=== PATIENT | female | born 1975 | race Caucasian/White ===

== ENCOUNTER 2016-04-20 11:03 | Emergency (ER) | payer BC ==
[2016-04-20] MEDS ORDERED: ONDANSETRON 4 MG/2 ML VIAL ONE (11:27)
[2016-04-20 11:36] VITALS: TEMP 97.9; BMI 27.3
[2016-04-20] MEDS ORDERED: ONDANSETRON 4 MG/2 ML VIAL IVPUSH ONE (11:53)
[2016-04-20] MEDS ORDERED: ACETAMINOPHEN 1000 MG/100 ML VIAL (NON FORMULARY) IVPB ONE (11:54)
[2016-04-20] MEDS ORDERED: SODIUM CHLORIDE 1,000 ML IV SCH (12:00)
--- NOTE | 2016-04-20 12:00 | PDOC ---
History of Present Illness - General Chief Complaint: Nausea/Vomiting Stated Complaint: NAUSEA & VOMITING Time Seen by Provider: 04/20/16 11:41 - History of Present Illness Initial Comments: 04/20/16 11:55 40-year-old female with past medical history of psoriasis, for which she is on otezla She states that she has been on this for a while, and it is not an immunosuppressive Patient states that she did have the flu shot this year Patient states that she was driving to work when she suddenly got nauseated Then she started vomiting multiple times, the vomitus was not bloody Then she got home, had multiple episodes of watery diarrhea, without blood, and multiple episodes of vomiting again without blood She is complaining of intermittent abdominal cramping She complains of associated chills, but no fever She did have her flu shot this year She states that after having "too numerous to count" episodes of vomiting and diarrhea, she had near syncope, and some to her knees, but was able to get back up She is on oral contraceptives that she states she hasn't had a period for a long time since she's been on the oral contraceptives She denies any dysuria urgency or frequency She denies any vaginal discharge She states that her friend was sick with a gastrointestinal illness recently She denies any other complaints at this time, and the remainder of the review of systems is negative Past History - Past Medical History Allergies/Adverse Reactions: Allergies Allergy/AdvReac Type Severity Reaction Status Date / Time No Known Allergies Allergy Verified 04/20/16 11:15 Home Medications: Ambulatory Orders Apremilast [Otezla] 30 mg PO 04/20/16 Norethindrone AC-Eth Estradiol [Junel] 1 each PO 04/20/16 Ondansetron [Zofran Odt -] 4 mg SL TID PRN #14 od.tablet 04/20/16 Other medical history: PSORIASIS - Psycho/Social/Smoking Cessation Hx Anxiety: No Suicidal Ideation: No Smoking History: Never smoked Hx Alcohol Use: No Drug/Substance Use Hx: No Substance Use Type: None Review of Systems - Review of Systems Able to Perform ROS?: Yes Comments:: 04/20/16 11:57 12 point review of systems is as per history of present illness and otherwise negative *Physical Exam - Vital Signs Last Vital Signs Temp Pulse Resp BP Pulse Ox 97.9 F 73 16 116/66 99 04/20/16 11:13 04/20/16 11:13 04/20/16 11:13 04/20/16 11:13 04/20/16 11:13 - Physical Exam Comments: 04/20/16 11:59 Physical exam Last Vital Signs Temp Pulse Resp BP Pulse Ox 97.9 F 73 16 116/66 99 04/20/16 11:13 04/20/16 11:13 04/20/16 11:13 04/20/16 11:13 04/20/16 11:13 GENERAL: The patient is awake, alert, and fully oriented, and in no apparent distress. HEAD: Normal with no signs of trauma. EYES: Sclera anicteric, conjunctiva normal ENT: Mucous membranes dry NECK: Normal range of motion, supple LUNGS: Breath sounds equal, clear to auscultation bilaterally. No wheezes, and no crackles. HEART: Regular rate and rhythm, normal S1 and S2 without murmur, rub or gallop. ABDOMEN: Soft, nontender, normoactive bowel sounds. No guarding, no rebound. No masses appreciated. Abdomen is completely soft and nontender EXTREMITIES: Normal range of motion, no edema. No clubbing or cyanosis. No cords, erythema, or tenderness. NEUROLOGICAL: Cranial nerves II through XII grossly intact. Normal speech, normal gait. PSYCH: Normal mood, normal affect. SKIN: Warm, Dry, normal turgor, no rashes or lesions noted. ED Treatment Course - LABORATORY CBC & Chemistry Diagram: 04/20/16 12:40 04/20/16 12:40 Medical Decision Making - Medical Decision Making 04/20/16 12:00 Most likely acute viral gastroenteritis Will hydrate, control symptomatology, and reevaluate 04/20/16 12:31 Patient walked to the bathroom, and when she got up off the toilet she described the feeling of sparkles in her right visual field, lightheadedness, near syncope, and transient loss of the right upper visual quadrant, which resolved after a few seconds and after laying flat and opening up the IV fluid Complete neurologic exam done, and is normal now, with full visual mack, without any visual field loss Patient states that she did have one ocular migraine in the past with similar symptoms She states she does have a headache now She states the visual symptoms are completely gone Patient may have gotten hypotensive getting off the toilet after being so dehydrated, and this might of been related to a transient hypotensive episode getting off the toilet from her dehydration Symptoms resolved quickly, back to normal now, we'll check a head CT Addendum- Patient refuses head CT She states the symptoms started when she got off the toilet really fast, and thinks that she might have just got off the toilet to fast being dehydrated, and all symptoms are gone now 04/20/16 14:21 Patient feeling much better, after hydration and meds, tolerating clear liquids Ambulatory without difficulty Will discharge with clear liquid diet and Zofran Laboratory Tests 04/20/16 04/20/16 04/20/16 11:53 11:53 12:40 WBC 12.1 H RBC 4.33 Hgb 13.2 Hct 39.6 MCV 91.4 MCHC 33.5 RDW 12.2 Plt Count 386 MPV 6.5 L Sodium Potassium Chloride Carbon Dioxide Anion Gap BUN Creatinine Creat Clearance w eGFR Random Glucose Calcium Total Bilirubin AST ALT Alkaline Phosphatase Total Protein Albumin Urine Color Yellow Urine Appearance Cloudy Urine pH 5.5 Ur Specific Bunch 1.020 Urine Protein Trace Urine Glucose (UA) Negative Urine Ketones 3+ H Urine Blood Trace H Urine Nitrite Negative Urine Bilirubin Negative Urine Urobilinogen 0.2 e.u/dl Ur Leukocyte Esterase Negative Urine RBC 0-3 Urine WBC 0-3 Urine Bacteria Few Hyaline Casts 0-3 Urine HCG, Qual Negative 04/20/16 12:40 WBC RBC Hgb Hct MCV MCHC RDW Plt Count MPV Sodium 135 L Potassium 3.8 Chloride 104 Carbon Dioxide 22 Anion Gap 9 BUN 18 Creatinine 0.7 Creat Clearance w eGFR > 60 Random Glucose 101 Calcium 8.1 L Total Bilirubin 0.3 AST 25 ALT 21 Alkaline Phosphatase 27 L Total Protein 6.0 L Albumin 3.6 Urine Color Urine Appearance Urine pH Ur Specific Bunch Urine Protein Urine Glucose (UA) Urine Ketones Urine Blood Urine Nitrite Urine Bilirubin Urine Urobilinogen Ur Leukocyte Esterase Urine RBC Urine WBC Urine Bacteria Hyaline Casts Urine HCG, Qual Vital Signs (72 hours) 04/20/16 04/20/16 11:13 14:10 Temperature 97.9 F Pulse Rate 73 Pulse Rate [ 78 Right Radial] Respiratory 16 15 Rate Blood Pressure 116/66 Blood Pressure 103/65 [Left Arm] O2 Sat by Pulse 99 100 Oximetry (%) Ambulatory around the ED without difficulty *DC/Admit/Observation/Transfer Diagnosis at time of Disposition: Nausea vomiting and diarrhea, Dehydration - Discharge Dispostion Disposition: HOME Condition at time of disposition: Improved - Prescriptions Prescriptions: Ondansetron [Zofran Odt -] 4 mg SL TID PRN #14 od.tablet PRN Reason: Nausea And/Or Vomiting - Patient Instructions Printed Discharge Instructions: DI for Vomiting -- Adult, DI for Nausea -- Adult, DI for Diarrhea and Traveler's Diarrhea -- Adult Additional Instructions: Clear liquid diet for the next 24 hours-Pedialyte, Gatorade, broth, Jell-O, tea , water Then increase diet to BRAT diet - bananas/rice/applesauce/tea Zofran if needed for nausea and vomiting [id number] Imodium if needed for diarrhea Increase fluid intake Tylenol if needed for headache or pain Followup with your primary care physician in 24-48 hours Return immediately if you worsen in any way Take your medications as directed - Post Discharge Activity Work/School Note: Back to Work
[2016-04-20] MEDS ORDERED: ACETAMINOPHEN INJECTION 100 ML IVPB ONE (12:10)
[2016-04-20 12:16] LABS: PH,URINE 5.5 (4.5-8); URINE BILIRUBIN Negative (NEGATIVE); URINE GLUCOSE (UA) Negative (NEGATIVE); URINE KETONE 3+ (NEGATIVE); URINE LEUK ESTERASE Negative (NEGATIVE); URINE NITRITE Negative (NEGATIVE); URINE PROTEIN Trace (NEGATIVE); URINE UROBILINOGEN 0.2 E.U/dl (0.2-1.0)
[2016-04-20 12:17] LABS: URINE APPEARANCE CLOUDY; URINE BLOOD TRACE (NEGATIVE); URINE COLOR YELLOW
[2016-04-20 12:18] LABS: URINE BACTERIA FEW /hpf (NEGATIVE); URINE HYALINE CAST 0-3 /lpf; URINE RBC 0-3 /hpf (0-3); URINE WBC 0-3 (3-5)
[2016-04-20 12:50] LABS: MCH 30.6 pg (25.7-33.7); MCHC 33.5 g/dl (32.0-36.0); MEAN CELL VOLUME 91.4 fl (80-96); MEAN PLT VOLUME 6.5 fl (7.5-11.1); PLATELET COUNT 386 K/MM3 (134-434); RDW 12.2 % (11.6-15.6); WHITE BLOOD COUNT 12.1 K/mm3 (4.0-10.0)
[2016-04-20 13:07] LABS: ALBUMIN 3.6 g/dl (3.5-5.0); ALK PHOS 27 U/L (32-92); ANION GAP 9 (8-16); BILIRUBIN,TOTAL 0.3 mg/dl (0.2-1.0); CALCIUM 8.1 mg/dl (8.4-10.2); CO2 22 mmol/L (22-28); CREATININE 0.7 mg/dl (0.6-1.3); GLUCOSE,RANDOM 101 mg/dl (74-106); SGOT/AST 25 U/L (10-42); SGPT/ALT 21 U/L (10-40)
[2016-04-20 14:11] VITALS: BP 103/65; PULSE 78
== END 2016-04-20 14:32 | disposition home or self-care (01) ==
LOC: FER 11:03
PROC: 3E033NZ Introduction of Analgesics, Hypnotics, Sedatives into Peripheral Vein, Percutaneous Approach (ICD-10-PCS; principal; 2016-04-20)
PROC: 3E033GC Introduction of Other Therapeutic Substance into Peripheral Vein, Percutaneous Approach (ICD-10-PCS; 2016-04-20)
DX: E86.0 Dehydration (principal); R11.2 Nausea with vomiting, unspecified
CPT/HCPCS: 36415; 80053; 81003; 81015; 84703; 85027; 99283-25

== ENCOUNTER 2017-12-25 14:52 | Emergency (ER) | payer BC ==
--- NOTE | 2017-12-25 14:54 | PDOC ---
History of Present Illness - General Chief Complaint: Pain, Acute Stated Complaint: LEFT FLANK PAIN Time Seen by Provider: 12/25/17 14:53 History Source: Patient Exam Limitations: No Limitations - History of Present Illness Initial Comments: 12/25/17 14:53 Mr. Vang is a 41-year-old female who is generally healthy presents emergency department with a complaint of left flank pain. Patient states her symptoms began yesterday in the afternoon when she noted a twinge of pain which rapidly improved. Today while seated at her desk on a conference call she noted severe pain which caused her to double over. She had a prescription for Ultram, took one of these tablets which mildly improved her symptoms. At its worst, prior to arrival, patient's left flank pain was 10/10 with radiation around to the lower abdomen. No fevers or chills. No hematuria, dysuria. No trauma to her back. No prior episodes like this. PMH: Multiple orthopedic injuries as a result of snowboarding PSH: Meds: Nortriptyline 10 mg for rhomboid tear, CCB oil for anxiet ALL: NKDA Social: FH: Noncontributory GENERAL/CONSTITUTIONAL: No: fever, chills, weakness, loss of appetite. HEAD, EYES, EARS, NOSE AND THROAT: No: change in vision, ear pain, discharge, sore throat, throat swelling. CARDIOVASCULAR: No: chest pain, lightheadedness, palpitations, syncope RESPIRATORY: No: cough, shortness of breath, wheezing, hemoptysis, stridor. GASTROINTESTINAL: No: nausea, vomiting, diarrhea, abdominal cramping, rectal bleeding, constipation. GENITOURINARY: No: dysuria, hematuria, frequency, urgency, flank pain. MUSCULOSKELETAL: No: back pain, neck pain, joint pain, muscle swelling or pain SKIN AND BREASTS: No: lesions, pallor, rash or easy bruising. NEUROLOGIC: No: headache, vertigo, paresthesias, weakness ENDOCRINE: No: unexplained weight gain or loss HEMATOLOGIC/LYMPHATIC: No: anemia, easy bleeding, swelling nodes. GENERAL: The patient is in no acute distress. HEAD: Normal with no signs of trauma. EYES: PERRLA, EOMI, sclera anicteric, conjunctiva clear. ENT: Ears normal, nares patent, oropharynx clear without exudates. Moist mucous membranes. NECK: Normal range of motion, supple without lymphadenopathy, JVD, or masses. LUNGS: Breath sounds equal, clear to auscultation bilaterally. No wheezes, and no crackles. HEART:Regular rate and rhythm, normal S1 and S2 without murmur, rub or gallop. ABDOMEN: Soft, nontender, normoactive bowel sounds. No guarding, no rebound. No masses palpable. EXTREMITIES: Normal range of motion, no edema. No clubbing or cyanosis. No erythema, or tenderness. NEUROLOGICAL: Cranial nerves II through XII grossly intact. Normal speech. No focal neurological deficits. MUSCULOSKELETAL: Back non-tender to palpation, no CVA tenderness SKIN: Warm, Dry, normal turgor, no rashes or lesions noted. 12/25/17 15:13 Past History - Past Medical History Allergies/Adverse Reactions: Allergies Allergy/AdvReac Type Severity Reaction Status Date / Time No Known Allergies Allergy Verified 12/25/17 17:54 Home Medications: Ambulatory Orders NK [No Known Home Medication] 12/25/17 - Suicide/Smoking/Psychosocial Hx Smoking History: Never smoked Hx Alcohol Use: No Drug/Substance Use Hx: No Substance Use Type: None ED Treatment Course - LABORATORY CBC & Chemistry Diagram: 12/25/17 15:33 12/25/17 15:33 Medical Decision Making - Medical Decision Making 12/25/17 15:59 Laboratory Tests 12/25/17 12/25/17 14:55 15:33 BUN 18 Creatinine 1.1 Urine Blood Negative Urine Nitrite Negative Ur Leukocyte Esterase Negative Urine HCG, Qual Negative 12/25/17 16:57 Pt s/p CT Awaiting read Pt more comfortable 12/25/17 17:21 CT temperature is no evidence of ureterolithiasis or urinary obstruction. Patient's pancreatic neck demonstrates a mildly lobulated contour probably due to normal variation. 0.5 cm right hepatic lobe hypodensity's. Patient demonstrates no blood in the urine, question recently passed kidney stone. Patient has no history of atrial fibrillation and has a regular heart rate, doubt renal infarct. Patient feels better. Patient has resolved. Will discharged home. we have discussed the very small possibility of renal infarct Pt has no risk factors for this Will send LDH Pt asked to return to the ER for CT WITH CONTRAST in the event her symptoms return Clinical impression: flank pain, initial presentation *DC/Admit/Observation/Transfer Diagnosis at time of Disposition: Left flank pain - Discharge Dispostion Disposition: HOME Condition at time of disposition: Stable Decision to Admit order: No - Referrals - Patient Instructions Printed Discharge Instructions: DI for Flank Pain Additional Instructions: Ms Vang Thank you for coming in to the ER today Please read the [facility] ED Care Sheets describing your diagnosis. PLEASE NOTE we suggest at a minimum that you review all symptoms and final test results with a physician that will provide ongoing care for you. THANK YOU for allowing us to help begin your care of this latest issue. Keep in mind the treatment performed in the Emergency Department is NOT complete until you have followed up with your Doctor. We want you to return to the ED as soon as possible if symptoms get worse or if you have any problems whatsoever. You can take motrin for pain or use the Ultram that you have home for pain If you do so, consider returning to the ER for re assessment - Post Discharge Activity Forms/Work/School Notes: Back to Work
[2017-12-25 15:10] LABS: URINE APPEARANCE Clear; URINE BILIRUBIN Negative (NEGATIVE); URINE COLOR Yellow; URINE GLUCOSE (UA) Negative (NEGATIVE); URINE KETONE Negative (NEGATIVE); URINE LEUK ESTERASE Negative (NEGATIVE); URINE NITRITE Negative (NEGATIVE); URINE PROTEIN Negative (NEGATIVE); URINE UROBILINOGEN 0.2 (0.2-1.0)
[2017-12-25 15:15] VITALS: BP 116/81; PULSE 72; TEMP 98.1; BMI 28.0
[2017-12-25 15:20] LABS: HCG,QUALITATIVE URINE Negative
[2017-12-25] MEDS ORDERED: morphine CARPU-JECT 4 MG/1 ML DISP.SYRIN IVPUSH ONE (15:37)
[2017-12-25] MEDS ORDERED: SODIUM CHLORIDE 1,000 ML IV STA (15:37)
[2017-12-25] MEDS ORDERED: KETOROLAC TROMETHAMINE 30 MG/1 ML VIAL IVPUSH ONE (15:37)
[2017-12-25] MEDS ORDERED: KETOROLAC TROMETHAMINE 30 MG/1 ML VIAL ONE (15:38)
[2017-12-25 15:51] LABS: ALBUMIN 4.3 g/dl (3.5-5.0); ALK PHOS 37 U/L (32-92); ANION GAP 7 MMOL/L (8-16); BILIRUBIN,TOTAL 0.6 mg/dl (0.2-1.0); BLOOD UREA NITROGEN 18 mg/dl (7-18); CALCIUM 9.2 mg/dl (8.4-10.2); CHLORIDE 102 mmol/L (98-107); CO2 27 mmol/L (22-28); CREATININE 1.1 mg/dl (0.6-1.3); GLUCOSE,RANDOM 104 mg/dl (74-106); POTASSIUM 4.6 mmol/L (3.5-5.1); SGOT/AST 21 U/L (10-42); SGPT/ALT 24 U/L (10-40); SODIUM 136 mmol/L (136-145); TOT PROT 6.9 g/dl (6.4-8.3)
[2017-12-25 16:01] LABS: BASO % 0.4 % (0-2.0); EOS % 1.6 % (0-4.5); HEMOGLOBIN 12.6 GM/dl (10.7-15.3); LYMPH % 24.5 % (8-40); MCH 31.3 pg (25.7-33.7); MCHC 33.2 g/dl (32.0-36.0); MEAN CELL VOLUME 94.2 fl (80-96); MEAN PLT VOLUME 7.1 fl (7.5-11.1); MONO % 5.6 % (3.8-10.2); NEUT % 67.9 % (42.8-82.8); PLATELET COUNT 424 K/MM3 (134-434); RBC 4.03 M/mm3 (3.60-5.2); RDW 12.9 % (11.6-15.6); WHITE BLOOD COUNT 7.4 K/mm3 (4.0-10.8)
== END 2017-12-25 17:55 | disposition home or self-care (01) ==
LOC: FER 14:52
PROC: 3E0333Z Introduction of Anti-inflammatory into Peripheral Vein, Percutaneous Approach (ICD-10-PCS; principal; 2017-12-25)
PROC: 3E033NZ Introduction of Analgesics, Hypnotics, Sedatives into Peripheral Vein, Percutaneous Approach (ICD-10-PCS; 2017-12-25)
PROC: 3E0337Z Introduction of Electrolytic and Water Balance Substance into Peripheral Vein, Percutaneous Approach (ICD-10-PCS; 2017-12-25)
DX: R10.32 Left lower quadrant pain (principal)
CPT/HCPCS: 36415; 74176; 80053; 81003; 83615; 84703; 85025; 99284-25; J7030

== ENCOUNTER 2022-12-26 09:25 | Emergency (ER) | payer BC ==
[2022-12-26 09:48] VITALS: BP 110/88; PULSE 89; RESP 18; TEMP 98.8; BMI 28.1
[2022-12-26] MEDS: ALBUTEROL SO4 2.5/IPRATROPIUM 0.5 INH SOL 3 ML VIAL.NEB. NEB SCH ×3 (10:30→11:05)
[2022-12-26] MEDS ORDERED: ALBUTEROL SO4 2.5/IPRATROPIUM 0.5 INH SOL 3 ML VIAL.NEB. NEB ONE (10:40)
[2022-12-26 11:50] LABS: HEMATOCRIT 39.8 % (32.4-45.2); HEMOGLOBIN 13.9 G/dL (10.7-15.3); MCH 31.9 pg (25.7-33.7); MCHC 34.8 g/dl (32.0-36.0); MEAN CELL VOLUME 91.5 fl (80-96); MEAN PLT VOLUME 6.9 fl (7.5-11.1); PLATELET COUNT 293.9 10^3/uL (134-434); RBC 4.35 10^6/uL (3.60-5.2); RDW 13.4 % (11.6-15.6)
[2022-12-26 12:01] LABS: ALBUMIN 4.5 g/dl (3.4-5.0); ALK PHOS 46 U/L (45-117); ANION GAP 11 MMOL/L (8-16); BILIRUBIN,TOTAL 0.5 mg/dl (0.2-1); BLOOD UREA NITROGEN 13.8 mg/dl (7-18); CALCIUM 9.1 mg/dl (8.5-10.1); CHLORIDE 103 mmol/L (98-107); CO2 25 mmol/L (21-32); CREATININE 0.8 mg/dl (0.6-1.3); GLUCOSE,RANDOM 109 mg/dl (74-106); POTASSIUM 3.6 mmol/L (3.5-5.1); SGPT/ALT 18.1 U/L (7-52); SODIUM 139 mmol/L (136-145); TOT PROT 6.7 g/dl (6.4-8.2)
== END 2022-12-26 13:48 | disposition home or self-care (01) ==
LOC: FER 09:25
PROC: 3E0F7GC Introduction of Other Therapeutic Substance into Respiratory Tract, Via Natural or Artificial Opening (ICD-10-PCS; principal; 2022-12-26)
DX: R06.02 Shortness of breath (principal); U07.1 COVID-19
CPT/HCPCS: 36415; 71045-TC-FY; 80053; 84484; 85027; 85379; 93005; 99285-25

== ENCOUNTER 2023-03-22 08:02 | Day surgery (SDC) | payer BC ==
[2023-03-19 14:24] VITALS: BMI 27.3
[2023-03-22 10:10] VITALS: RESP 18; TEMP 97
[2023-03-22 10:11] VITALS: BP 109/71; PULSE 82
== END 2023-03-22 10:30 | disposition home or self-care (01) ==
LOC: FASU-ENDO 08:02
PROVIDERS: ATTEND Internal Medicine Gastroenterology
PROC: 0DBL8ZX Excision of Transverse Colon, Via Natural or Artificial Opening Endoscopic, Diagnostic (ICD-10-PCS; principal; 2023-03-22 09:25)
DX: Z12.11 Encounter for screening for malignant neoplasm of colon (principal); K63.5 Polyp of colon; Z86.010 Personal history of colon polyps; Z83.719 Family history of colon polyps, unspecified
CPT/HCPCS: 81025; 88305-TC